=== PATIENT | male | born 1950 | race Caucasian/White ===

== ENCOUNTER 2019-04-05 09:48 | Observation (INO) | payer MEDICARE ==
[2019-04-05] MEDS ORDERED: Aspirin 81 mg CHEW TAB* 81 MG TAB.CHEW PO ONE ×3 (10:09→10:54)
[2019-04-05 10:12] LABS: ABS Lymphocytes 2.4 10^3/ul (1.0-4.8); ABS Monocytes 0.7 10^3/ul (0-0.8); ABS Neutrophils 3.6 10^3/ul (1.5-7.7); Eosinophil % 0.7 %; Hematocrit 50 % (42-52); Hemoglobin 16.7 g/dL (14.0-18.0); Lymphocyte % 35.6 %; Mean Corpuscular HGB Conc 34 g/dL (31-36); Mean Corpuscular Hemoglobin 30 pg (27-31); Mean Corpuscular Volume 90 fL (80-94); Mean Platelet Volume 6.5 fL (7.4-10.4); Platelet Count 200 10^3/uL (150-450); Red Blood Count 5.54 10^6 /uL (4.18-5.48); Red Cell Distribution Width 13 % (10-15); White Blood Count 6.8 10^3/uL (3.5-10.8)
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
[2019-04-05 10:22] LABS: INR 0.97 (0.82-1.09)
[2019-04-05 10:31] LABS: Albumin 4.5 g/dL (3.2-5.2); Albumin/Globulin Ratio 1.8 (1-3); BUN/Creatinine Ratio 17.7 (8-20); Calcium 9.2 mg/dL (8.6-10.3); EGFR African American 94.3 (>60); EGFR Non-African American 77.9 (>60); Globulin 2.5 g/dL (2-4); Potassium 4.1 mmol/L (3.5-5.0); Total Bilirubin 1.6 mg/dL (0.2-1.0)
[2019-04-05] MEDS ORDERED: Acetaminophen TAB* 325 MG PO PRN (12:19)
[2019-04-05] MEDS ORDERED: Magnesium Hydroxide LIQ* 30 ML UDC PO PRN (12:19)
[2019-04-05] MEDS ORDERED: Al Hydrox/Mg Hydrox/Simet LIQ* 30 ML UDC PO PRN (12:19)
[2019-04-05 12:24] LABS: HDL Cholesterol 42.2 mg/dL
[2019-04-05] MEDS ORDERED: Enoxaparin(*) 40 MG/0.4 ML SYR SUBCUT SCH (13:00)
--- NOTE | 2019-04-05 13:42 | HP ---
CC: Abdi Bella MD* HISTORY AND PHYSICAL: DATE OF ADMISSION: 04/05/19 PRIMARY CARE PHYSICIAN: Abdi Bella MD. HEALTHCARE PROXY: The patient's Caitlin. CODE STATUS: Full. CHIEF COMPLAINT: 1.5 weeks of left-sided chest pain HISTORY OF PRESENT ILLNESS: Mr. Quintero is a 68-year-old male with a history of hypertension, hyperlipidemia, and anxiety provoked chest pain, who is presenting with approximately 1-1/2 weeks of a dull left-sided chest pain. He reports that the pain is constant and changes in intensity, only influenced by his stress level. He reports that it does not go away. It is not worse with exertion. It is not pleuritic, positional, or reproducible. He states he has had pain in the past like this that was related to his anxiety that usually went away within a week. He reports that it is 1 to 2/10 in severity. He states he wanted to come to the hospital, but he happened to have a primary care appointment this morning and an EKG at that time showed T-wave changes, so he was referred to the emergency room for further care. He denies associated diaphoresis, shortness of breath, orthopnea, palpitations, headache, abdominal pain, nausea, vomiting, constipation, diarrhea, lower extremity swelling, or dysuria. A complete 10-point review of systems was performed and pertinent positives and negatives are listed as above. PAST MEDICAL HISTORY: 1. Hypertension. 2. Hyperlipidemia. 3. History of chest pain with elevated coronary artery calcium score per CT/PET , catheterization in 2006 showing minimal coronary artery disease with a 50% ostial diagonal branch and a 30% mid right coronary artery stenosis. HOME MEDICATIONS: 1. Aspirin 81 mg daily. 2. Ramipril 5 mg daily. 3. Simvastatin 5 mg daily. ALLERGIES: No known drug allergies. FAMILY HISTORY: His father at 89 from pancreatic cancer. Prior to that, he had high cholesterol and heart disease. His mother had colon cancer and at 56. SOCIAL HISTORY: The patient is retired from commercial banking. He lives with his Suzy who is his healthcare proxy. He spends a lot of his time in [place] and his daughter lives there. He is a never tobacco or recreational drug user. He denies alcohol use. PHYSICAL EXAMINATION GENERAL: He is a well appearing man in no acute distress. He is alert and interactive. VITAL SIGNS: The patient is afebrile, heart rate 52, blood pressure 156/90, respiratory rate 16, oxygen saturation 97% on room air. HEENT: OP clear. Moist mucous membranes. NECK: Supple. No JVD. LUNGS: Clear to auscultation bilaterally. HEART: Regular rate and rhythm. No murmurs, gallops or rubs. ABDOMEN: Soft, nontender, nondistended. EXTREMITIES: Warm and well perfused. No evidence of edema. DP pulses 2+ bilaterally. DIAGNOSTIC STUDIES/LAB DATA: CBC, BMP unremarkable. LFTs only significant for bilirubin 1.6. First troponin negative. LDL cholesterol 57 with triglycerides 103. EKG with mild ST depression in 2 and T-wave flattening in V2 through V6 and repol abnormality in 2. This is change from priors. ASSESSMENT AND PLAN: Mr. Quintero is a 68-year-old male with a history of hypertension, hyperlipidemia, and chest pain, who is presenting with subacute atypical left-sided chest pain that changes only in response to stress and not exertion or position. 1. Chest pain. The patient's ALVAREZ score is 4 due to known coronary artery disease, aspirin use, multiple coronary risk factors and age over 65. He will be admitted under telemetry with serial troponins and he will receive echocardiogram and a nuclear exercise stress test in the morning. He was loaded with aspirin in the emergency room. We will continue the patient's home statin. His LDL is at goal. 2. Hypertension. Continue the patient's home Ramipril 5 mg daily. 3. DVT prophylaxis: Initiate Lovenox subcu. 4. Code status: The patient is full code TIME SPENT: Approximately 60 minutes was spent on admission of this patient, more than of which was spent at bedside for interview and exam. [id number]/[facility] #: [id number] OC
--- NOTE | 2019-04-06 08:35 | PN ---
Subjective Date of Service: 04/06/19 Interval History: Admitted yesterday. Sinus kamari overnight - pt reports his baseline. Asymptomatic. Troponins negative. Pending nuc stress and TTE. Objective Active Medications: Acetaminophen (Tylenol Tab*) 975 mg PO Q8H PRN PRN Reason: MILD PAIN or TEMP > 100.4 Al Hydrox/Mg Hydrox/Simethicone (Maalox Plus*) 30 ml PO Q6H PRN PRN Reason: INDIGESTION Aspirin (Aspirin Ec Tab*) 81 mg PO DAILY [facility] Last Admin: 04/06/19 08:05 Dose: 81 mg Enoxaparin Sodium (Lovenox(*)) 40 mg SUBCUT Q24H [facility] Last Admin: 04/05/19 14:28 Dose: Not Given Magnesium Hydroxide (Milk Of Magnyousif Liq*) 30 ml PO Q4H PRN PRN Reason: CONSTIPATION Ramipril (Altace Cap*) 5 mg PO DAILY [facility] Last Admin: 04/06/19 08:05 Dose: 5 mg Simvastatin (Zocor(Nf)) 5 mg PO DAILY [facility] Last Admin: 04/06/19 08:04 Dose: 5 mg Vital Signs - 8 hr 04/06/19 03:20 Temperature 97.6 F Pulse Rate 44 Respiratory 18 Rate Blood Pressure 115/68 (mmHg) O2 Sat by Pulse 96 Oximetry Oxygen Devices in Use Now: None Appearance: well appearing Eyes: No Scleral Icterus Ears/Nose/Mouth/Throat: Clear Oropharnyx, Mucous Membranes Moist Respiratory: Symmetrical Chest Expansion and Respiratory Effort, Clear to Auscultation Cardiovascular: NL Sounds; No Murmurs; No JVD, RRR Abdominal: NL Sounds; No Tenderness; No Distention, No Hepatosplenomegaly Lymphatic: No Cervical Adenopathy Extremities: No Edema Skin: No Rash or Ulcers Neurological: Alert and Oriented x 3, NL Sensation, NL Gait Result Diagrams: 04/05/19 10:04 04/05/19 10:04 Assess/Plan/Problems-Billing Assessment: 68M with HTN presents with atypical CP. ALVAREZ 4. Pending nuc stress. - Patient Problems (1) Chest pain Status: Acute Code(s): R07.9 - CHEST PAIN, UNSPECIFIED SNOMED Code(s): 27341873 Comment: Pending stress test today. No events on tele. Trops negative.
[2019-04-06] MEDS ORDERED: Ramipril CAP* 5 MG PO SCH (09:00)
[2019-04-06] MEDS ORDERED: CMCS - Simvastatin TAB(NF) 10 MG TAB PO SCH (09:00)
[2019-04-06] MEDS ORDERED: Aspirin EC TAB* 81 MG TAB.EC PO SCH (09:00)
[2019-04-06 10:08] VITALS: BP 145/76
--- NOTE | 2019-04-06 21:37 | DS ---
CC: Dr. Abdi Bella DISCHARGE SUMMARY: DATE OF ADMISSION: 04/05/19 DATE OF DISCHARGE: 04/06/19 PRIMARY CARE PHYSICIAN: Dr. Abdi Bella. PRIMARY DIAGNOSES: 1. Chest pain of unknown etiology. 2. Anxiety and psychosocial stressors. SECONDARY DIAGNOSES: Include: 1. Hypertension. 2. Hyperlipidemia. DISCHARGE MEDICATIONS: 1. Aspirin 81 mg daily. 2. Simvastatin 5 mg daily. 3. Ramipril 5 mg daily. HISTORY OF PRESENT ILLNESS: Mr. Quintero is a 68-year-old man with hypertension , hyperlipidemia, and anxiety provoked chest pain, who is presenting with approximately one and half weeks of a dull left-sided chest pain. He reports the pain is constant and fluctuates in intensity, but is only influenced by his stress level and does not decrease to 0. He denies worsening with exertion. The chest pain is not pleuritic, positional or reproducible. He states he has had pain in the past like this that was related to anxiety and usually went away within a week. He reports that the pain is about 1 to 2/10 in severity. He states that he happened to have a primary care appointment on day of presentation and brought up this chest pain and an EKG during that visit showed nonspecific T-wave changes, so he was referred to the emergency room for further care. He denies associated diaphoresis, shortness of breath, orthopnea , palpitations, headache, abdominal pain, nausea, vomiting, constipation, diarrhea, lower extremity swelling or dysuria. HOSPITAL COURSE: In the emergency room, the patient had a repeat of his EKG, which showed T-wave changes in lead III with T-wave flattening in the anterior leads given his ALVAREZ score of 4, he was admitted for a nuclear exercise stress test. The patient denied chest pain during admission and had 3 negative troponins. By next morning, the patient underwent nuclear medicine exercise stress test, which showed no fixed or reversible perfusion defects. 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 On day of discharge, a 10-point review of systems was performed and negative. PHYSICAL EXAM: The patient is afebrile, heart rate 50, blood pressure 145/76, respiratory rate 18, oxygen saturation 96% on room air. In general, he is well - appearing, alert, interactive, pleasant, conversant. HEENT: OP clear. Moist mucous membranes. Neck: Supple. No JVD. Lungs: Clear to auscultation bilaterally. Heart: Regular rate and rhythm. Occasionally bradycardic. No murmurs, gallops, or rubs. Abdomen: Soft, nontender, nondistended. Extremities: Warm and well perfused without evidence of edema. DIAGNOSTIC STUDIES/LAB DATA: CBC and BMP unremarkable. Bilirubin 1.6. LDL 57 and triglycerides 103. PSA 3.04. EKG as noted above. Nuclear medicine scan with no fixed or reversible perfusion defects. Assessment is low risk. DISCHARGE PLAN: The patient is to follow up with his primary care physician, Dr. Bella for ongoing cardiac risk factor management including tighter blood pressure control. He will also follow up with Dr. Salas of Cardiology. No changes were made to his home medications. He was educated on return precautions, which include worsening of chest pain or new symptoms of diaphoresis and shortness of breath. He is to eat a healthy diet, low in processed foods and maintain a healthy exercise regimen. DISPOSITION: To home. CONDITION: Good. TIME SPENT: Approximately 60 minutes was spent on discharge of this patient, more than half of which was spent with care coordination at bedside for interview and exam. [id number]/[facility] #: [id number] [place]
== END 2019-04-06 13:40 | disposition home or self-care (01) ==
LOC: ED 09:48 → MEDTELE 12:19
PROVIDERS: ADMIT Internal Medicine; ATTEND Internal Medicine
DX: R07.9 Chest pain, unspecified (principal); F41.9 Anxiety disorder, unspecified; I10 Essential (primary) hypertension; E78.5 Hyperlipidemia, unspecified; Z79.899 Other long term (current) drug therapy; Z79.82 Long term (current) use of aspirin; R94.31 Abnormal electrocardiogram [ECG] [EKG]
CPT/HCPCS: 36415; 71046; 78452; 80053; 80061; 83036; 84153; 84484; 85025; 85610; 93005; 93017; 93306; 99285; A9270-GY; A9502; G0103; G0378